=== PATIENT | female | born 1990 | race Caucasian/White ===

== ENCOUNTER 2024-11-04 15:39 | Outpatient (CLI) | payer OTHER, SELFPAY ==
[2024-11-04 16:36] LABS: Influenza A QL RT-PCR Negative (Negative); Influenza B QL RT-PCR Negative (Negative); SARS-CoV-2 RNA PCR Negative (Negative)
--- OUTSIDE RECORDS SUMMARY | 2024-11-04 17:06 | XMS_ITS | Clinical Summary ---
Author Organization [facility] Address [address] [place] [address] Care Team Providers Care Batterboard Setter Name Role Phone Unavailable Primary Care Provider Unavailabl e Source Comments [facility],non-owned Affiliates and Associated Physician Practices is amultiple site organization consisting of ambulatory clinics and hospital sitesin [place], [place], [place] and [place]. This disclosure is being madepursuant to the Care Everywhere program and may not contain all information available regarding this patient. Last updated 18.[facility] Allergies Active Allergy Reactions Criticality Noted Date Comments Codeine Nausea and/or Vomiting 05/07/2024 Sulfacetamide Rash Medium 05/07/2024 Medications * Be aware that medications may not be up to date on this document. Alwaysverify current medications with the patient. 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 Take 1 (one) tablet by mouth every 6 hours as needed for Pain 12 tablet 05/09/2024 Active Social History Tobacco Use Types Packs/Day Years Used Date Smoking Tobacco: Never Assessed Sex and Gender Information Value Date Recorded Sex Assigned at Not on file Gender Identity Not on file Sexual Orientation Not on file Last Filed Vital Signs Vital Sign Reading Time Taken Comments Blood Pressure 158/77 05/07/2024 4:29 PM CDT Pulse 85 05/07/2024 7:44 AM CDT Temperature 36.4 C (97.5 F) 05/07/2024 7:44 AM CDT Respiratory Rate 20 05/07/2024 7:44 AM CDT Oxygen Saturation 95% 05/07/2024 4:29 PM CDT Inhaled Oxygen Concentration - - Weight 129.3 kg (285 lb) 05/07/2024 7:44 AM CDT Height 170.2 cm (5' 7 ) 05/07/2024 7:44 AM CDT Body Mass Index 44.64 05/07/2024 7:44 AM CDT Plan of Treatment Health Maintenance Due Date Last Done Comments PAP SMEAR 1991 HIV SCREENING 12/16/2006 HEPATITIS C SCREENING 12/12/2009 DTAP/TDAP/TD VACCINES (1 - Tdap) 12/16/2010 HEPATITIS B VACCINE (1 of 3 - 19+ 3-dose series) 12/16/2010 COVID-19 VACCINE ( - 2023-2 5 season) 2024 INFLUENZA VACCINE (#1) 2024 DEPRESSION SCREENING 08/07/2024 ZOSTER VACCINE (1 of 2) 12/16/2041 HIB VACCINE Aged Out No longer eligi ble based on patient's age to complete this topic HPV VACCINE Aged Out No longer eligi ble based on patient's age to complete this topic MENINGOCOCCAL (Group B) VACC INE SHARED DECISION-MAKING Aged Out No longer eligibl e based on patient's age to complete this topic MENINGOCOCCAL GROUPS A/C/Y/W VACCINE Aged Out No longer eligible b ased on patient's age to complete this topic PNEUMOCOCCAL VACCINE Aged Out No long er eligible based on patient's age to complete this topic
--- OUTSIDE RECORDS SUMMARY | 2024-11-04 17:06 | XMS_ITS | Clinical Summary ---
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 Gender Identity Not on file Sexual Orientation Not on file Plan of Treatment Health Maintenance Due Date Last Done Comments Hepatitis C Virus (HCV) Screening 1990 TdaP Immunization 1991 Hepatitis B Immunization (1 of 3 - 19+ 3-dose series) 12/16/2010 Pap Smear 12/16/2012 Cervical Cancer Screening (CCS) 12/16/2021 HPV/Cotest 12/16/2021 Influenza Immunization (#1) 2024 SARS-COV-2 Immunization ( season) 2024 Respiratory Syncytial Virus (RSV) Immunization (Adult) (1 - 1-dose 75+ series) 12/16/2066 Meningococcal Immunization (ACWY) Aged Out No longer eligible based on patient's age to complete this topic Pneumococcal Immunization Combined Aged Out No longer eligible based on patient's age to complete this topic Rotavirus Immunization Aged Out No lo nger eligible based on patient's age to complete this topic
== END 2024-11-04 15:40 | disposition home or self-care (01) ==
PROVIDERS: PCP Family Medicine; Visit Provider Physician Assistant Medical
DX: R50.9 Fever, unspecified (principal); J02.9 Acute pharyngitis, unspecified; Z20.822 Contact with and (suspected) exposure to COVID-19
CPT/HCPCS: 87636